=== PATIENT | male | born 1975 | race Caucasian/White ===

== ENCOUNTER 2019-12-02 05:45 | Observation (INO) | payer SELFPAY ==
[~2019-12-02] VITALS: Ht 167.6 cm; Wt 73.0 kg
[2019-12-02 07:55] LABS: BASO # 0.1 (0.0-0.2); BASO % 0.8 % (0.0-2.0); EOS # 0.1 (0.0-0.7); EOS % 0.7 % (0-4.0); GRAN # 7.8 (1.4-6.5); GRAN % 73.6 % (42.2-75.2); HEMATOCRIT 47.8 % (42.0-52.0); HEMOGLOBIN 15.6 g/dl (13.5-18.0); LYMPH # 1.7 (1.2-3.4); LYMPH % 16.5 % (20.0-51.0); MEAN CELL VOLUME 90 fl (80.0-100.0); MEAN CORPUSCULAR HEMOGLOBIN 29 pg (27.0-31.0); MEAN CORPUSCULAR HGB CONC 33 g/dl (33.0-37.0); MEAN PLATELET VOLUME 12.1 fl (7.4-10.4); MONO # 0.9 (0.1-0.6); MONO % 8.1 % (1.7-9.3); PLATELET COUNT 199 K/mm3 (130-400); RED BLOOD COUNT 5.33 M/mm3 (4.20-5.60); REDCELL DISTRIBUTION WIDTH-CV 12.7 % (11.5-14.5)
[2019-12-02 08:10] LABS: GLUCOSE 88 mg/dL (74-106)
[2019-12-02 08:11] LABS: ALANINE AMINOTRANSFERASE 11 U/L (4-49); ALBUMIN 4.4 gm/dL (3.5-5.0); ALKALINE PHOSPHATASE 88 U/L (50-136); ANION GAP 8 mmol/L (7-16); AST,SGOT 23 U/L (15-37); BILIRUBIN,TOTAL 0.6 mg/dL (0.0-1.0); BLOOD UREA NITROGEN 18 mg/dL (9-20); CALCIUM 9.2 mg/dL (8.4-10.2); CARBON DIOXIDE 25 mmol/L (22-30); CHLORIDE 106 mmol/L (98-107); CREATINE KINASE 81 U/L (55-170); CREATININE, serum 1.22 (0.66-1.25); POTASSIUM 4.3 mmol/L (3.4-5.0); SODIUM 138 mmol/L (137-145); TOTAL PROTEIN 7.8 gm/dL (6.4-8.2)
[2019-12-02 08:12] LABS: C-REACTIVE PROTEIN < 0.5 mg/dL (0.0-0.9)
[2019-12-02 08:22] LABS: TROPONIN-I < 0.012 ng/mL (0.000-0.035)
[2019-12-02 12:04] VITALS: BP 135/85; PULSE 80; TEMP 98.2
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
[2019-12-02 15:32] LABS: MUCOUS Present /lpf; PH 6 (5-8); SQUAMOUS EPITHELIAL None Seen /hpf; URINE APPEARANCE Clear; URINE BACTERIA None Seen /hpf; URINE BILIRUBIN Negative (NEGATIVE); URINE BLOOD Negative (NEGATIVE); URINE COLOR Yellow; URINE GLUCOSE Negative (NEGATIVE); URINE KETONE Negative (NEGATIVE); URINE LEUKOCYTE ESTERASE Negative (NEGATIVE); URINE NITRATE Negative (NEGATIVE); URINE PROTEIN(semi-quant) Negative (NEGATIVE); URINE RBC 0-2 /hpf; URINE UROBILINOGEN Negative (NEGATIVE)
[2019-12-02 15:52] LABS: TRICYCLIC ANTIDEPRESS URINE NEGATIVE
[2019-12-02 16:04] LABS: COLLECTION METHOD CLEAN CATCH
[2019-12-02 16:46] VITALS: BP 146/91; PULSE 93; TEMP 97.9
[2019-12-02 19:44] VITALS: BP 141/90; PULSE 91; TEMP 98.1
--- NOTE | 2019-12-02 20:00 | NUR ---
Received report from SULY Meza. Pt is currently lying in bed and has no complaints of pain at this time. Pt has his call light within reach and his bed is in lowest position .
[2019-12-02 23:46] VITALS: BP 100/63; PULSE 63; TEMP 97.8
[2019-12-02 23:52] VITALS: BP 135/92; PULSE 90; TEMP 97.6
--- NOTE | 2019-12-03 03:30 | NUR ---
Pt currently lying in bed. When asked if he needed something for pain. Pt stated that his pain is better now then it was. He said he feels like the pain is getting better. Pt has his call light within reach and his bed is in lowest position.
[2019-12-03 03:55] VITALS: BP 148/95; PULSE 84; TEMP 95.5
--- NOTE | 2019-12-03 07:11 | NUR ---
PT RESTING IN BED DURING REPORT. DENIES PAIN OR ANY NEEDS AT THIS TIME
[2019-12-03 07:48] VITALS: BP 156/99; PULSE 90; TEMP 97.8
--- NOTE | 2019-12-03 08:03 | NUR ---
ASSESSMENT NOTE: PT AOX4. DENIES ANY PAIN. FULL MOBILITY TO [facility] WITHOUT PAIN WITH MOVEMENT. STEADY INDEPENDENT AMBULATION. TOLERATING MEALS. NO CONCERNS NOTED.
[2019-12-03 08:14] LABS: CALCIUM 8.7 mg/dL (8.4-10.2); CREATININE, serum 0.94 (0.66-1.25); POTASSIUM 4.2 mmol/L (3.4-5.0)
--- NOTE | 2019-12-03 09:46 | NUR ---
SW met with patient to complete intake. Patient states that he lives with his step-brother Tevin [phone] in [place], [place]. He states that he does not utilize any DME and is indpendent with all ADL's. Patient states that he does not have a PCP at this time and will look into getting one. Patient provides that he utilizes [facility] to obtain his medications and that he is able to afford them. Patient states that he does not have a DPOA-HC and does not wish to have one at this time. Patient states that he will be discharging today and does not have any concerns in regards to his discharge at this time. SW will continue to follow if and when needed.
[2019-12-03] MEDS ORDERED: TYLENOL 325MG325 MG PO (11:20)
[2019-12-03 12:13] VITALS: BP 138/85; PULSE 93; TEMP 98.2
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
--- NOTE | 2019-12-03 16:34 | NUR ---
SW was contacted by nurse and provided that patient's ride is on the way from [place] to pick him up. SW will continue to follow if needed.
[2019-12-03 16:41] VITALS: BP 142/89; PULSE 81; TEMP 97.8
--- NOTE | 2019-12-03 17:03 | NUR ---
DISCHARGE INSTRUCTIONS REVIEWED WITH PT @ 1610. HE NOW STATES HIS FRIEND WILL BE ABLE TO PICK HIM UP. FRIEND COMING FROM [facility]. PT TO MAKE APPT WITH LOCAL DOC AT [facility].
--- NOTE | 2019-12-03 18:37 | NUR ---
PT'S RIDE CALLED @1700 STATING HE IS ENROUTE. ETA 1900. PT IV DC'D AND DISCHARGE PROCESS COMPLETE PENDING ESCORT OUT. STATES NO PAIN. STEADY INDEPENDENT AMBULATION
== END 2019-12-03 19:00 | disposition home or self-care (01) ==
LOC: COL.ER 05:45 → SURG 09:55
PROVIDERS: Emergency Medicine; Hospitalist; ADMIT Internal Medicine
DX: M25.552 Pain in left hip (principal); R05 Cough; Z20.828 Contact with and (suspected) exposure to other viral communicable diseases; R11.2 Nausea with vomiting, unspecified; R07.9 Chest pain, unspecified; F17.210 Nicotine dependence, cigarettes, uncomplicated; F90.9 Attention-deficit hyperactivity disorder, unspecified type; Z88.6 Allergy status to analgesic agent
CPT/HCPCS: G0378; J1644; J3010; J7030; Q9967